=== PATIENT | female | born 2005 | race Caucasian/White ===

== ENCOUNTER 2025-07-05 11:01 | Outpatient (AMB) | payer MEDICAID, SELFPAY ==
[2025-07-05 11:13] VITALS: BP 116/74; PULSE 102; RESP 16; TEMP 36.2; O2SAT 96; BMI 24.7
--- NOTE | 2025-07-05 11:13 | OBCLNT_ITS ---
Vital Signs 07/05/25 11:13 Height 1.49 m Height Method Stated Weight 54.998 kg Weight Measurement Method Standing Scale BMI 24.7 BP 116/74 Blood Pressure Source Automatic Cuff Blood Pressure Location Left Upper Arm Position Sitting Respiration 16 Pulse 102 H Pulse Source Monitor Temp 97.2 F Temp Source Oral Pulse Oximetry (%) 96 Oxygen Delivery Method Room Air Allergies/Home Meds Allergies & Medications Allergies No Known Allergies Allergy (Verified 07/05/25 11:14) Medication Reconciliation No Known Home Medications 07/05/25 [History Confirmed 07/05/25] Intake Visit Data Collection New Patient or Established: New Patient (never been to [facility]) Reason for Visit:: OB TRANSFER 32 WEEKS Seen by Clinical Staff ONLY (RN/MA): No Carpenter/Labor Required: No Do You Feel Safe at Home: Yes Authorities Contacted: N/A PCP or OBGYN visit in last 3 months: Yes Hx Now: Yes Are you currently on any form of Control: No Last menstrual period: 11/23/24 Pain Present Currently: No Pain Scale Used: Farfan-Guerrero/Numerical Pain scale:: 0 Smoking Status Smoking Status: Never smoker Questionnaires Covid-19 Vaccine Questionnaire Has patient been vacinated for Covid-19 Have you been vacinated for Covid-19: No PHQ-9 PHQ-2 Over the last 2 weeks, how often have you been bothered by any of the following problems? 1. Little interest or pleasure in doing things: not at all 2. Feeling down, depressed, or hopeless: not at all Total score: 0 PHQ-9 3. Trouble falling or staying asleep, or sleeping too much: Not at all 4. Feeling tired or having little energy: Not at all 5. Poor appetite or overeating: Not at all 6. Feeling bad about yourself - or that you are a failure or have let yourself or your family down: Not at all 7. Trouble concentrating on things, such as reading the newspaper or watching television: Not at all 8. Moving or speaking so slowly that other people could have noticed? - Or the opposite - being so fidgety or restless that you have been moving around a lot more than usual: not at all 9. Thoughts that you would be better off or of hurting yourself in some way: Not at all Total score: 0 If you checked off any problems, how difficult have these problems made it for you to do your work, take care of things at home, or get along with other p eople?: not difficult at all Source: Developed by Drs. Juan Lion, Joyce Black, Jeremy Heaton and colleagues, with an educational mario from [employer]. Depression screen completed yes Social History Living Situation History Marital Status: Single Lives With: Family Housing: Apartment Tobacco History Smoking Status: Never smoker Second Hand Smoke Exposure: No Alcohol History Alcohol Intake: Never Domestic Abuse History Do You Feel Safe at Home: Yes History of Present Illness HPI Narrative 19-year-old 1 para 0 for OBI. Patient is a transfer from Dr. Newsome's office with records. Reports good movement. Denies leaking, denies bleeding, denies contractions. Last period November 18, 2024. Estimated due date August 25, 2025. Patient had an ultrasound at [facility] June 12. Patient was 29 weeks 3 and this confirmed dates. And baby was measuring 36 percentile. Patient denies any existence of chronic medical illness. Denies social habits. Denies surgery. Patient is O+, antibody screen negative, RPR nonreactive, rubella immune, hepatitis B negative, hep C negative, HIV negative, GC and Chlamydia were negative. Patient had an elevated 1 hour but 3-hour was normal. NIPT and AFP were negative. The screen for spinal muscular atrophy was negative. The patient screened positive for cystic fibrosis. Patient is currently being followed at [facility] for genetics OB Initial Visit OB Flowsheet OB Flowsheet Initial Weight: Not Recorded Date -?-?-?-?-?-?-?-?-?-?-?-?- EGA Weight BP Alb Glu CTX Pres Fundal ht FHR Mov Dilation Station Effacement Hx Notes Visit Note 07/05/25 -?-?-?-?-?-?-?-?-?-?-?-?- 32w 5d 54.998 kg 116/74 absent cephalic 32 145 active Denies leaking. Denies bleeding. Denies contractions. Reports good movement. Denies labor contractions. 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 Partner reports that he has had saliva test for cystic fibrosis screen and it is pending. They also have a follow-up with maternal- medicine and genetics July 19 Keep appointment with genetics and maternal- medicine for July 19. Discussed labor precautions. Advised kick count twice a day. Continue prenatals. Increase fluids. Return in 2 weeks OB check Menstrual History Menstrual reliability: definite Flow: normal Menstrual regularity: regular Monthly: Yes Age at menarche: 12 On control pills at conception: No OB History : 1 Para: 0 Hx # Pregnancies: 0 Hx Total # of Abortions (Spontaneous & Elective): 0 # of Living Children: 0 Infection History & Risk Evaluation History of STDs: none HIV risk evaluation: low risk Hepatitis B risk evaluation: low risk Patient or partner has history of Genital Herpes: No Varicella/chicken pox status: immunized Genetic Screening & History Genetic Screening/Teratology Counseling - Includes patient, baby's father, or anyone in either family with: 1. Patient's age 35 years or older as of estimated date of delivery: No 2. Thalassemia (Luxembourgish, Uzbek, Mediterranean, or Background); MCV less than 80: No 3. Neural Tube Defect (Meningomyelocele, Spina Bifida, or Anencephaly): No 4. Congenital Heart Defect: No 5. Down Syndrome: No 6. Darnell-Sachs (Ashkenazi Church, Cajun, Wolof [place]): No 7. Skye Disease (Ashkenazi Church): No 8. Familial Dysautonomia (Ashkenazi Church): No 9. Sickle Cell Disease or Trait (): No 10. Hemophilia or other blood disorders: No 11. Muscular Dystrophy: No 12. Cystic Fibrosis: No 13. Bradford's Chorea: No 14. Mental Retardation/Autism: No 15. Other inherited genetic or chromosomal disorder: No 16. Maternal Metabolic Disorder (EG,TYPE 1 Diabetes, PKU): No 17. Patient or baby's father had a child with defects not listed above: No 18. Recurrent loss or a stillbirth: No 19. Medications (including supplements, vitamins, herbs or otc drugs)/illicit/recreational drugs/alcohol since last menstrual period: No 20. Any other: No Infection History 1. Live with someone with TB or exposed to TB: No 2. Rash or viral illness since last menstrual period: No 3. Hepatitis B,C: No Other (see comments) Source: [employer] Review of Systems Review of Systems Systems Reviewed: All systems reviewed, normal except as documented Exam General Limitations: no limitations General Appearance: alert, in no apparent distress, comfortable, cooperative, healthy appearing, well developed and well groomed Head Head exam: atraumatic, normocephalic and normal inspection Neck Neck exam: Present normal inspection, full ROM and trachea midline Chest Chest inspection: Present normal inspection and symmetric chest wall rise Resp Respiratory exam: Present normal lung sounds bilaterally Card Cardiovascular exam: Present regular rate, normal rhythm and normal heart sounds Abdominal Abdominal exam: Present soft and normal bowel sounds Psych Psychiatric exam: Present normal affect and normal mood Office Procedures OB Clinic LOC & Office Proc's Nursing/Assessment Patient Status: Initial/New Patient OB Clinic Nursing Assessment: Medication Reconciliation, Update PMH in EMR and Vital Signs OB Clinic Coordination of Care: Education Complex Pt/Fam, Consent,records obtained, informed consent, Lab and Imaging orders, Ref for ancillary service and Staff clarify orders Special Needs: Heart tones New Patient Charge New Patient Point Assignment: [id number] New Patient Point Charge: SPRAYING MACHINE OPERATOR Level 4 ([id number]) Assessment & Plan Diagnosis / Problem List (1) Encounter for supervision of high risk in third trimester, antepartum: Status: Acute Plan Keep follow-up appointment with Lucy July 19. Discussed labor precautions. Kick counts twice a day. Continue prenatals. Increase fluids. Return in 2 weeks OB check Additional Plan Follow Up: 2 Weeks (0bc)
== END 2025-07-05 11:48 | disposition home or self-care (01) ==
LOC: HODSOBC 11:01
PROVIDERS: Supervising Provider Advanced Practice Midwife; Visit Provider Advanced Practice Midwife
DX: O09.893 Supervision of other high risk pregnancies, third trimester (principal); Z14.1 Cystic fibrosis carrier; Z3A.32 32 weeks gestation of pregnancy
CPT/HCPCS: 99204; G0463

== ENCOUNTER 2025-07-24 15:04 | Outpatient (AMB) | payer MEDICAID, SELFPAY ==
--- NOTE | 2025-07-24 15:08 | OBCLNT_ITS ---
Vital Signs 07/24/25 15:29 Height 1.49 m Height Method Stated Weight 56.245 kg Weight Measurement Method Standing Scale BMI 25.3 BP 112/76 Blood Pressure Source Automatic Cuff Blood Pressure Location Left Upper Arm Position Sitting Respiration 20 Pulse 101 H Pulse Source Monitor Temp 98.4 F Temp Source Oral Pulse Oximetry (%) 98 Oxygen Delivery Method Room Air Allergies/Home Meds Allergies & Medications Allergies No Known Allergies Allergy (Verified 07/24/25 15:29) Medication Reconciliation fluconazole 150 mg tablet 150 mg PO QDAY 3 days #3 tabs 07/24/25 [Rx] Intake Visit Data Collection New Patient or Established: Established Patient (seen at [facility] within 3 years) Reason for Visit:: CARE Seen by Clinical Staff ONLY (RN/MA): No Mail Order Biller Required: No Do You Feel Safe at Home: Yes Authorities Contacted: N/A PCP or OBGYN visit in last 3 months: Yes Hx Now: Yes Are you currently on any form of Control: No Pain Present Currently: No Pain Scale Used: Farfan-Guerrero/Numerical Pain scale:: 0 Smoking Status Smoking Status: Never smoker Questionnaires Covid-19 Vaccine Questionnaire Has patient been vacinated for Covid-19 Have you been vacinated for Covid-19: Yes PHQ-9 PHQ-2 Over the last 2 weeks, how often have you been bothered by any of the following problems? 1. Little interest or pleasure in doing things: not at all 2. Feeling down, depressed, or hopeless: not at all Total score: 0 PHQ-9 3. Trouble falling or staying asleep, or sleeping too much: Not at all 4. Feeling tired or having little energy: Not at all 5. Poor appetite or overeating: Not at all 6. Feeling bad about yourself - or that you are a failure or have let yourself or your family down: Not at all 7. Trouble concentrating on things, such as reading the newspaper or watching television: Not at all 8. Moving or speaking so slowly that other people could have noticed? - Or the opposite - being so fidgety or restless that you have been moving around a lot more than usual: not at all 9. Thoughts that you would be better off or of hurting yourself in some way: Not at all Total score: 0 Source: Developed by Drs. Juan Lion, Joyce Black, Jeremy Heaton and colleagues, with an educational mario from [employer] Depression screen completed yes Social History Living Situation History Lives With: Family Housing: Apartment Tobacco History Smoking Status: Never smoker Second Hand Smoke Exposure: No Alcohol History Alcohol Intake: Never Domestic Abuse History Do You Feel Safe at Home: Yes Care OB Visit Log OB Flowsheet Initial Weight: Not Recorded Date -?-?-?-?-?-?-?-?-?-?-?-?- EGA Weight BP Alb Glu CTX Pres Fundal ht FHR Mov Dilation Station Effacement Hx Notes Visit Note 07/05/25 -?-?-?-?-?-?-?-?-?-?-?-?- 32w 5d 54.998 kg 116/74 absent cephalic 32 145 active Denies leaking. Denies bleeding. Denies contractions. Reports good movement. Denies labor contractions. 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 Partner reports that he has had saliva test for cystic fibrosis screen and it is pending. They also have a follow-up with maternal- medicine and genetics July 19 Keep appointment with genetics and maternal- medicine for July 19. Discussed labor precautions. Advised kick count twice a day. Continue prenatals. Increase fluids. Return in 2 weeks OB check 07/24/25 -?-?-?-?-?-?-?-?-?-?-?-?- 35w 3d 56.245 kg 112/76 absent cephalic 35 150 active Reports good movement. Denies leaking, denies bleeding, no complaints of contractions. Patient's labia were both swollen. White curdy discharge noted. GBS today Diflucan 150 p.o. daily x 3 sent to [facility]. GBS today. Discussed labor precautions and kick count. Discussed ER precautions. And return in a week OB check KATHI Calculator Estimated Delivery Date Method Current WG Current Estimate 08/25/25 Manual 35w 3d final KATHI: 08/25/25. EFW: 52% Other Estimates 08/25/25 LMP (Certain) 35w 3d 08/25/25 Ultrasound #1 35w 3d 08/25/25 Ultrasound #2 35w 3d Notes Visit Date: 07/05/25 Last Updated by: Faith Nice CNM 19 yo . LMP:11/18/24. EDC: 08/25/25. MG+FM sono 06/12/25L 29w3. EDC: 08/25. EFW: 36%. O+,abs-, rpr;;nr, rub imm, hbsag-, HIV-, HC-, GC/CT-. UT-, 1 hr gtt: 144. 3hr gtt; WNL, NIPT-/AFP-. SMA-. CF+ genetic pending Office Procedures OB Clinic LOC & Office Proc's Nursing/Assessment Patient Status: Established Patient OB Clinic Nursing Assessment: Medication Reconciliation, Update PMH in EMR and Vital Signs OB Clinic Coordination of Care: Complex Care and Chronic Disease 1-5, Consent,records obtained, informed consent, Education Simp Pt/Fam, 1 Ins Authorization, Lab and Imaging orders, Results/Orders obtained and Staff clarify orders Special Needs: Heart tones Miscellaneous Interventions: Culture Specimen Collection Established Patient Charge Established Patient Point Assignment: 165 Established Patient Point Charge: EP Level 5 (160-above) Assessment & Plan Diagnosis / Problem List (1) Encounter for supervision of high risk in third trimester, antepartum: Status: Acute Plan GBS today. Discussed labor precautions and kick count. Discussed ER precautions as well. Diflucan 150 p.o. daily x 3 for yeast infection. Return in a week OB Additional Plan Follow Up: 1 Week (obc)
[2025-07-24 15:29] VITALS: BP 112/76; PULSE 101; RESP 20; TEMP 36.9; O2SAT 98; BMI 25.3
== END 2025-07-24 16:09 | disposition home or self-care (01) ==
LOC: HODSOBC 15:04
PROVIDERS: Supervising Provider Advanced Practice Midwife; Visit Provider Advanced Practice Midwife
DX: O09.893 Supervision of other high risk pregnancies, third trimester (principal); O98.813 Other maternal infectious and parasitic diseases complicating pregnancy, third trimester; B37.9 Candidiasis, unspecified; Z3A.35 35 weeks gestation of pregnancy
CPT/HCPCS: 99215; G0463

== ENCOUNTER 2025-07-31 14:57 | Outpatient (AMB) | payer MEDICAID, SELFPAY ==
[2025-07-31 15:12] VITALS: BP 110/75; PULSE 91; RESP 18; TEMP 36.8; O2SAT 96; BMI 25.7
--- NOTE | 2025-07-31 15:12 | OBCLNT_ITS ---
Vital Signs 07/31/25 15:12 Height 1.49 m Height Method Stated Weight 57.266 kg Weight Measurement Method Standing Scale BMI 25.7 BP 110/75 Blood Pressure Source Automatic Cuff Blood Pressure Location Left Upper Arm Position Sitting Respiration 18 Pulse 91 Pulse Source Monitor Temp 98.2 F Temp Source Oral Pulse Oximetry (%) 96 Oxygen Delivery Method Room Air Allergies/Home Meds Allergies & Medications Allergies No Known Allergies Allergy (Verified 07/31/25 15:13) Medication Reconciliation No Known Home Medications 07/31/25 [History Confirmed 07/31/25] Intake Visit Data Collection New Patient or Established: Established Patient (seen at [facility] within 3 years) Reason for Visit:: CARE Seen by Clinical Staff ONLY (RN/MA): No Process Safety Manager Required: No Do You Feel Safe at Home: Yes Authorities Contacted: N/A PCP or OBGYN visit in last 3 months: Yes Hx Now: Yes Are you currently on any form of Control: No Pain Present Currently: No Pain Scale Used: Farfan-Guerrero/Numerical Pain scale:: 0 Smoking Status Smoking Status: Never smoker Questionnaires Covid-19 Vaccine Questionnaire Has patient been vacinated for Covid-19 Have you been vacinated for Covid-19: No PHQ-9 PHQ-2 Over the last 2 weeks, how often have you been bothered by any of the following problems? 1. Little interest or pleasure in doing things: not at all 2. Feeling down, depressed, or hopeless: not at all Total score: 0 PHQ-9 3. Trouble falling or staying asleep, or sleeping too much: Not at all 4. Feeling tired or having little energy: Not at all 5. Poor appetite or overeating: Not at all 6. Feeling bad about yourself - or that you are a failure or have let yourself or your family down: Not at all 7. Trouble concentrating on things, such as reading the newspaper or watching television: Not at all 8. Moving or speaking so slowly that other people could have noticed? - Or the opposite - being so fidgety or restless that you have been moving around a lot more than usual: not at all 9. Thoughts that you would be better off or of hurting yourself in some way: Not at all Total score: 0 Source: Developed by Joyce McginnisW. Wayne, Jeremy Heaton and colleagues, with an educational mario from [employer]. Depression screen completed yes Social History Living Situation History Lives With: Family Housing: Apartment Tobacco History Smoking Status: Never smoker Second Hand Smoke Exposure: No Alcohol History Alcohol Intake: Never Domestic Abuse History Do You Feel Safe at Home: Yes Care OB Visit Log OB Flowsheet Initial Weight: Not Recorded Date -?-?-?-?-?-?-?-?-?-?-?-?- EGA Weight BP Alb Glu CTX Pres Fundal ht FHR Mov Dilation Station Effacement Hx Notes Visit Note 07/05/25 -?-?-?-?-?-?-?-?-?-?-?-?- 32w 5d 54.998 kg 116/74 absent cephalic 32 145 active Denies leaking. Denies bleeding. Denies contractions. Reports good movement. Denies labor contractions. 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 Partner reports that he has had saliva test for cystic fibrosis screen and it is pending. They also have a follow-up with maternal- medicine and genetics July 19 Keep appointment with genetics and maternal- medicine for July 19. Discussed labor precautions. Advised kick count twice a day. Continue prenatals. Increase fluids. Return in 2 weeks OB check 07/24/25 -?-?-?-?-?-?-?-?-?-?-?-?- 35w 3d 56.245 kg 112/76 absent cephalic 35 150 active Reports good movement. Denies leaking, denies bleeding, no complaints of contractions. Patient's labia were both swollen. White curdy discharge noted. GBS today Diflucan 150 p.o. daily x 3 sent to [facility]. GBS today. Discussed labor precautions and kick count. Discussed ER precautions. And return in a week OB check 07/31/25 -?-?-?-?-?-?-?-?-?-?-?-?- 36w 3d 57.266 kg 110/75 absent cephalic 36 145 active Reports good movement. Fetus is active. Denies contractions denies bleeding, denies leaking. Patient does complain of some pelvic pressure. Vaginitis symptoms improved. Repeat GBS. Discussed labor precautions and kick count with patient. Increase fluids. Return in a week OB check KATHI Calculator Estimated Delivery Date Method Current WG Current Estimate 08/25/25 Manual 36w 3d final KATHI: 08/25/25. EFW: 52% Other Estimates 08/25/25 LMP (Certain) 36w 3d 08/25/25 Ultrasound #1 36w 3d 08/25/25 Ultrasound #2 36w 3d Notes Visit Date: 07/05/25 Last Updated by: Faith Nice CNM 19 yo . LMP:11/18/24. EDC: 08/25/25. MG+FM sono 06/12/25L 29w3. EDC: 08/25. EFW: 36%. O+,abs-, rpr;;nr, rub imm, hbsag-, HIV-, HC-, GC/CT-. UT-, 1 hr gtt: 144. 3hr gtt; WNL, NIPT-/AFP-. SMA-. CF+ genetic pending Office Procedures OB Clinic LOC & Office Proc's Nursing/Assessment Patient Status: Established Patient OB Clinic Nursing Assessment: Medication Reconciliation, Update PMH in EMR and Vital Signs OB Clinic Coordination of Care: Complex Care and Chronic Disease 1-5, Consent,records obtained, informed consent, Education Simp Pt/Fam, Lab and Imaging orders, Results/Orders obtained and Staff clarify orders Special Needs: Heart tones Established Patient Charge Established Patient Point Assignment: 135 Established Patient Point Charge: EP Level 4 (120-155) Assessment & Plan Diagnosis / Problem List (1) Encounter for supervision of high risk in third trimester, ant epartum: Status: Acute Plan gbs TODAY. DISCUSS LABOR PRECAUTION, [facility] BID. discuss danger s/s and ER precaution. rtc 1 week Additional Plan Follow Up: 1 Week (obc)
== END 2025-07-31 15:42 | disposition home or self-care (01) ==
LOC: HODSOBC 14:57
PROVIDERS: Supervising Provider Advanced Practice Midwife; Visit Provider Advanced Practice Midwife
DX: O09.93 Supervision of high risk pregnancy, unspecified, third trimester (principal); Z3A.36 36 weeks gestation of pregnancy; Z36.85 Encounter for antenatal screening for Streptococcus B
CPT/HCPCS: 99214; G0463

== ENCOUNTER 2025-08-09 13:38 | Outpatient (AMB) | payer MEDICAID, SELFPAY ==
[2025-08-09 13:49] VITALS: BP 112/74; PULSE 80; RESP 16; TEMP 36.8; O2SAT 98; BMI 26.0
--- NOTE | 2025-08-09 13:49 | OBCLNT_ITS ---
Vital Signs 08/09/25 13:49 Height 1.49 m Height Method Stated Weight 57.776 kg Weight Measurement Method Standing Scale BMI 26.0 BP 112/74 Blood Pressure Source Automatic Cuff Blood Pressure Location Left Upper Arm Position Sitting Respiration 16 Pulse 80 Pulse Source Monitor Temp 98.2 F Temp Source Oral Pulse Oximetry (%) 98 Oxygen Delivery Method Room Air Allergies/Home Meds Allergies & Medications Allergies No Known Allergies Allergy (Verified 08/09/25 13:49) Medication Reconciliation No Known Home Medications 07/31/25 [History Confirmed 08/09/25] Intake Visit Data Collection New Patient or Established: Established Patient (seen at [facility] within 3 years) Reason for Visit:: OBC Seen by Clinical Staff ONLY (RN/MA): No Hide Paster Required: No Do You Feel Safe at Home: Yes Authorities Contacted: N/A PCP or OBGYN visit in last 3 months: Yes Date of Last PCP or OBGYN visit: 07/31/25 Hx Now: Yes Are you currently on any form of Control: No Pain Present Currently: No Pain Scale Used: Farfan-Guerrero/Numerical Pain scale:: 0 Smoking Status Smoking Status: Never smoker Questionnaires Covid-19 Vaccine Questionnaire Has patient been vacinated for Covid-19 Have you been vacinated for Covid-19: Yes PHQ-9 PHQ-2 Over the last 2 weeks, how often have you been bothered by any of the following problems? 1. Little interest or pleasure in doing things: not at all 2. Feeling down, depressed, or hopeless: not at all Total score: 0 PHQ-9 3. Trouble falling or staying asleep, or sleeping too much: Not at all 4. Feeling tired or having little energy: Not at all 5. Poor appetite or overeating: Not at all 6. Feeling bad about yourself - or that you are a failure or have let yourself or your family down: Not at all 7. Trouble concentrating on things, such as reading the newspaper or watching television: Not at all 8. Moving or speaking so slowly that other people could have noticed? - Or the opposite - being so fidgety or restless that you have been moving around a lot more than usual: not at all 9. Thoughts that you would be better off or of hurting yourself in some way: Not at all Total score: 0 If you checked off any problems, how difficult have these problems made it for you to do your work, take care of things at home, or get along with other people?: not difficult at all Source: Developed by Drs. Juan Lion, Joyce Black, Jeremy Heaton and colleagues, with an educational mario from [employer]. Depression screen completed yes Social History Living Situation History Marital Status: Single Lives With: Family Housing: Apartment Tobacco History Smoking Status: Never smoker Second Hand Smoke Exposure: No Alcohol History Alcohol Intake: Never Domestic Abuse History Do You Feel Safe at Home: Yes Care OB Visit Log OB Flowsheet Initial Weight: Not Recorded Date -?-?-?-?-?-?-?-?-?-?-?-?- EGA Weight BP Alb Glu CTX Pres Fundal ht FHR Mov Dilation Station Effacement Hx Notes Visit Note 07/05/25 -?-?-?-?-?-?-?-?-?-?-?-?- 32w 5d 54.998 kg 116/74 absent cephalic 32 145 active Denies leaking. Denies bleeding. Denies contractions. Reports good movement. Denies labor contractions. 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 Partner reports that he has had saliva test for cystic fibrosis screen and it is pending. They also have a follow-up with maternal- medicine and genetics July 19 Keep appointment with genetics and maternal- medicine for July 19. Discussed labor precautions. Advised kick count twice a day. Continue prenatals. Increase fluids. Return in 2 weeks OB check 07/24/25 -?-?-?-?-?-?-?-?-?-?-?-?- 35w 3d 56.245 kg 112/76 absent cephalic 35 150 active Reports good movement. Denies leaking, denies bleeding, no complaints of contractions. Patient's labia were both swollen. White curdy discharge noted. GBS today Diflucan 150 p.o. daily x 3 sent to [facility]. GBS today. Discussed labor precautions and kick count. Discussed ER precautions. And return in a week OB check 07/31/25 -?-?-?-?-?-?-?-?-?-?-?-?- 36w 3d 57.266 kg 110/75 absent cephalic 36 145 active Reports good movement. Fetus is active. Denies contractions denies bleeding, denies leaking. Patient does complain of some pelvic pressure. Vaginitis symptoms improved. Repeat GBS. Discussed labor precautions and kick count with patient. Increase fluids. Return in a week OB check 08/09/25 -?-?-?-?-?-?-?-?-?-?-?-?- 37w 5d 57.776 kg 112/74 absent cephalic 37 145 active Reports good movement. Denies leaking or bleeding. Increased pressure. Occasional contractions Discussed labor precautions with patient. Discussed kick count twice a day. Increase fluids. Continue prenatals. Discussed danger signs symptoms and ER precautions. Return in a week OB check KATHI Calculator Estimated Delivery Date Method Current WG Current Estimate 08/25/25 Manual 37w 5d final KATHI: 08/25/25. EFW: 52% Other Estimates 08/25/25 LMP (Certain) 37w 5d 08/25/25 Ultrasound #1 37w 5d 08/25/25 Ultrasound #2 37w 5d Notes Visit Date: 08/09/25 Last Updated by: Faith Nice CNM 08/08: GBS- Visit Date: 07/05/25 Last Updated by: Faith Nice CNM 19 yo . LMP:11/18/24. EDC: 08/25/25. MG+FM sono 06/12/25L 29w3. EDC: 08/25. EFW: 36%. O+,abs-, rpr;;nr, rub imm, hbsag-, HIV-, HC-, GC/CT-. UT-, 1 hr gtt: 144. 3hr gtt; WNL, NIPT-/AFP-. SMA-. CF+ genetic pending Office Procedures OBC Clinic LOC & Office Proc's Nursing/Assessment Patient Status: Established Patient OB Clinic Nursing Assessment: Medication Reconciliation, Update PMH in EMR and Vital Signs OB Clinic Coordination of Care: Education Complex Pt/Fam, Consent,records obtained, informed consent, Lab and Imaging orders, Results/Orders obtained and Staff clarify orders Special Needs: Heart tones Established Patient Charge Established Patient Point Assignment: 115 Established Patient Point Charge: EP Level 3 (80-115) Assessment & Plan Diagnosis / Problem List (1) Encounter for supervision of high risk in third trimester, antepartum: Status: Acute Plan Kick count twice a day. Discussed labor precautions and signs symptoms of labor. Discussed ER precautions and danger signs symptoms. Continue prenatals. Return week OB check Additional Plan Follow Up: 1 Week (obc)
== END 2025-08-09 14:03 | disposition home or self-care (01) ==
LOC: HODSOBC 13:38
PROVIDERS: Supervising Provider Advanced Practice Midwife; Visit Provider Advanced Practice Midwife
DX: O09.93 Supervision of high risk pregnancy, unspecified, third trimester (principal); Z3A.37 37 weeks gestation of pregnancy
CPT/HCPCS: 99213; G0463

== ENCOUNTER 2025-08-21 11:21 | Outpatient (AMB) | payer MEDICAID, SELFPAY ==
[2025-08-21 11:36] VITALS: BP 114/80; PULSE 89; RESP 17; TEMP 36.4; O2SAT 98; BMI 26.5
--- NOTE | 2025-08-21 11:36 | AMB.OBVISIT ---
Vital Signs 08/21/25 11:36 Height 1.49 m Height Method Stated Weight 58.967 kg Weight Measurement Method Standing Scale BMI 26.5 BP 114/80 Blood Pressure Source Automatic Cuff Blood Pressure Location Right Upper Arm Position Sitting Respiration 17 Pulse 89 Pulse Source Monitor Temp 97.6 F Temp Source Temporal Artery Scan Pulse Oximetry (%) 98 Oxygen Delivery Method Room Air Allergies/Home Meds Allergies & Medications Allergies No Known Allergies Allergy (Verified 08/21/25 11:37) Medication Reconciliation No Known Home Medications 07/31/25 [History Confirmed 08/21/25] Intake Visit Data Collection New Patient or Established: Established Patient (seen at [facility] within 3 years) Reason for Visit:: OBC Seen by Clinical Staff ONLY (RN/MA): No Second Chef Required: No Do You Feel Safe at Home: Yes Authorities Contacted: N/A PCP or OBGYN visit in last 3 months: Yes Date of Last PCP or OBGYN visit: 08/09/25 Hx Now: Yes Are you currently on any form of Control: No Pain Present Currently: No Pain Scale Used: Farfan-Guerrero/Numerical Pain scale:: 0 Smoking Status Smoking Status: Never smoker Questionnaires Covid-19 Vaccine Questionnaire Has patient been vacinated for Covid-19 Have you been vacinated for Covid-19: No PHQ-9 PHQ-2 Over the last 2 weeks, how often have you been bothered by any of the following problems? 1. Little interest or pleasure in doing things: not at all 2. Feeling down, depressed, or hopeless: not at all Total score: 0 PHQ-9 3. Trouble falling or staying asleep, or sleeping too much: Not at all 4. Feeling tired or having little energy: Not at all 5. Poor appetite or overeating: Not at all 6. Feeling bad about yourself - or that you are a failure or have let yourself or your family down: Not at all 7. Trouble concentrating on things, such as reading the newspaper or watching television: Not at all 8. Moving or speaking so slowly that other people could have noticed? - Or the opposite - being so fidgety or restless that you have been moving around a lot more than usual: not at all 9. Thoughts that you would be better off or of hurting yourself in some way: Not at all Total score: 0 If you checked off any problems, how difficult have these problems made it for you to do your work, take care of things at home, or get along with other people?: not difficult at all Source: Developed by Drs. Juan Lion, Joyce Black, Jeremy Heaton and colleagues, with an educational mario from [employer]. Depression screen completed yes Social History Living Situation History Marital Status: Life Partner Lives With: Family Housing: Apartment Tobacco History Smoking Status: Never smoker Second Hand Smoke Exposure: No Alcohol History Alcohol Intake: Never Domestic Abuse History Do You Feel Safe at Home: Yes Care OB Visit Log OB Flowsheet Initial Weight: Not Recorded Date <del>?</del> EGA Weight BP Alb Glu CTX Pres Fundal ht FHR Mov Dilation Station Effacement Hx Notes Visit Note 07/05/25 <del>?</del> 32w 5d 54.998 kg 116/74 absent cephalic 32 145 active Denies leaking. Denies bleeding. Denies contractions. Reports good movement. Denies labor contractions. 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 Partner reports that he has had saliva test for cystic fibrosis screen and it is pending. They also have a follow-up with maternal- medicine and genetics July 19 Keep appointment with genetics and maternal- medicine for July 19. Discussed labor precautions. Advised kick count twice a day. Continue prenatals. Increase fluids. Return in 2 weeks OB check 07/24/25 <del>?</del> 35w 3d 56.245 kg 112/76 absent cephalic 35 150 active Reports good movement. Denies leaking, denies bleeding, no complaints of contractions. Patient's labia were both swollen. White curdy discharge noted. GBS today Diflucan 150 p.o. daily x 3 sent to [facility]. GBS today. Discussed labor precautions and kick count. Discussed ER precautions. And return in a week OB check 07/31/25 <del>?</del> 36w 3d 57.266 kg 110/75 absent cephalic 36 145 active Reports good movement. Fetus is active. Denies contractions denies bleeding, denies leaking. Patient does complain of some pelvic pressure. Vaginitis symptoms improved. Repeat GBS. Discussed labor precautions and kick count with patient. Increase fluids. Return in a week OB check 08/09/25 <del>?</del> 37w 5d 57.776 kg 112/74 absent cephalic 37 145 active Reports good movement. Denies leaking or bleeding. Increased pressure. Occasional contractions Discussed labor precautions with patient. Discussed kick count twice a day. Increase fluids. Continue prenatals. Discussed danger signs symptoms and ER precautions. Return in a week OB check 08/21/25 <del>?</del> 39w 3d 58.967 kg 114/80 absent cephalic 38 140 active 1 -1 80 Reports good movement. Denies leaking denies bleeding. Occasional contraction. Increased pressure Discussed labor precautions. Kick count twice a day. Increase fluids. Continue prenatals. Discussed danger signs symptoms ER precautions. Return in a week for OB check KATHI Calculator Estimated Delivery Date Method Current WG Current Estimate 08/25/25 LMP (Certain) 39w 3d Other Estimates 08/25/25 Ultrasound #1 39w 3d 08/25/25 Ultrasound #2 39w 3d 08/25/25 Manual 39w 3d final KATHI: 08/25/25. EFW: 52% Notes Visit Date: 08/09/25 Last Updated by: Faith Nice CNM 08/08: GBS- Visit Date: 07/05/25 Last Updated by: Faith Nice CNM 19 yo . LMP:11/18/24. EDC: 08/25/25. MG+FM sono 06/12/25L 29w3. EDC: 08/25. EFW: 36%. O+,abs-, rpr;;nr, rub imm, hbsag-, HIV-, HC-, GC/CT-. UT-, 1 hr gtt: 144. 3hr gtt; WNL, NIPT-/AFP-. SMA-. CF+ genetic pending Office Procedures OBC Clinic LOC & Office Proc's Nursing/Assessment Patient Status: Established Patient OB Clinic Nursing Assessment: Medication Reconciliation, Update PMH in EMR and Vital Signs OB Clinic Coordination of Care: Complex Care and Chronic Disease 1-5, Education Complex Pt/Fam, Consent,records obtained, informed consent and Staff clarify orders Special Needs: Heart tones Miscellaneous Interventions: Pelvic no cultures Established Patient Charge Established Patient Point Assignment: 130 Established Patient Point Charge: EP Level 4 (120-155) Assessment & Plan Diagnosis / Problem List (1) Encounter for supervision of high risk in third trimester, antepartum: Status: Acute Plan discuss labor precaution. fkc bid. comfort measure for pressure and back ache, rtc 1 week obc Additional Plan Follow Up: 1 Week (obc)
== END 2025-08-21 11:48 | disposition home or self-care (01) ==
LOC: HODSOBC 11:21
PROVIDERS: Supervising Provider Advanced Practice Midwife; Visit Provider Advanced Practice Midwife
DX: O09.93 Supervision of high risk pregnancy, unspecified, third trimester (principal); Z3A.39 39 weeks gestation of pregnancy
CPT/HCPCS: 99214; G0463

== ENCOUNTER 2025-08-26 10:13 | Observation (INO) | payer MEDICAID, SELFPAY ==
[2025-08-26] VITALS (31 sets, daily range): BP systolic 100–123; BP diastolic 57–87; PULSE 79–107; RESP 16–98; TEMP 36.8; O2SAT 96–99; BMI 27.8
--- NOTE | 2025-08-26 12:08 | XR_ITS ---
Examination: Biophysical profile, ultrasound Date and time of exam: 08/26/2025, 12:18 p.m. INDICATION: wellbeing Technique: Multiple transabdominal sonographic images of the pelvis abdomen obtained. Attention is directed to the breathing movement, gross body movement, amniotic fluid volume and tone. Findings: Total biophysical profile is 8 of 8. breathing movement is 2. Gross body movement is 2. tone is 2. Qualitative amniotic fluid volume is 2 heart rate: 135 bpm MATHIEU: 5.1 cm Impression: Biophysical profile is 8 of 8.
[2025-08-26] MEDS: RINGERS LACTATED 1000 ML 1,000 ML 999 ML IV (12:15)
[2025-08-26 12:25] LABS: Influenza A Ag Negative; Influenza B Ag Negative
[2025-08-26 12:46] LABS: COVID-19 Antigen (In-House) Negative (Negative)
== END 2025-08-26 13:28 | disposition home or self-care (01) ==
PROVIDERS: Admitting Provider Obstetrics & Gynecology; Visit Provider Obstetrics & Gynecology
DX: O26.893 Other specified pregnancy related conditions, third trimester (principal); Z3A.40 40 weeks gestation of pregnancy; R50.9 Fever, unspecified; R51.9 Headache, unspecified
CPT/HCPCS: 59025; 59899; 76819; 87502; 87811; J7120

== ENCOUNTER 2025-08-28 09:09 | Outpatient (CLI) | payer MEDICAID, SELFPAY ==
[2025-08-28] VITALS (8 sets, daily range): BP systolic 117; BP diastolic 75–85; PULSE 83–91; RESP 16–98; TEMP 36.6; O2SAT 97–98; BMI 27.0
--- NOTE | 2025-08-28 10:00 | XR_ITS ---
Examination: Biophysical profile, ultrasound Date and time of exam: August 28, 2025, 1002 hours INDICATIONS: Post dates Technique: Multiple transabdominal sonographic images of the pelvis abdomen obtained. Attention is directed to the breathing movement, gross body movement, amniotic fluid volume and tone. Findings: Amniotic fluid index 7.8 cm Total biophysical profile is 8 of 8. breathing movement is 2. Gross body movement is 2. tone is 2. Qualitative amniotic fluid volume is 2 Impression: Biophysical profile is 8 of 8.
== END 2025-08-28 11:10 | disposition home or self-care (01) ==
LOC: S4S1 09:13 → S4SX 09:14
PROVIDERS: Referring Provider Obstetrics & Gynecology; Visit Provider Obstetrics & Gynecology
DX: O48.0 Post-term pregnancy (principal); Z3A.40 40 weeks gestation of pregnancy
CPT/HCPCS: 59025; 76819

== ENCOUNTER 2025-08-30 08:38 | Outpatient (AMB) | payer MEDICAID, SELFPAY ==
[2025-08-30 08:43] VITALS: BP 126/84; PULSE 97; RESP 18; TEMP 36.6; O2SAT 98; BMI 26.9
--- NOTE | 2025-08-30 08:43 | OBCLNT_ITS ---
Vital Signs 08/30/25 08:43 Height 1.5 m Height Method Stated Weight 60.328 kg Weight Measurement Method Standing Scale BMI 26.9 BP 126/84 Blood Pressure Source Automatic Cuff Blood Pressure Location Left Upper Arm Position Sitting Respiration 18 Pulse 97 Pulse Source Monitor Temp 98 F Temp Source Oral Pulse Oximetry (%) 98 Oxygen Delivery Method Room Air Allergies/Home Meds Allergies & Medications Allergies No Known Allergies Allergy (Verified 08/30/25 08:43) Medication Reconciliation vitamins no.102-iron 90 mg-folate 1 mg-dha 200 mg capsule 1 cap PO QDAY 08/28/25 [History Confirmed 08/30/25] Intake Visit Data Collection New Patient or Established: Established Patient (seen at [facility] within 3 years) Reason for Visit:: CARE Seen by Clinical Staff ONLY (RN/MA): No Airplane Pilot Chief Required: No Do You Feel Safe at Home: Yes Authorities Contacted: N/A PCP or OBGYN visit in last 3 months: Yes Hx Now: Yes Are you currently on any form of Control: No Pain Present Currently: No Pain Scale Used: Farfan-Guerrero/Numerical Pain scale:: 0 Smoking Status Smoking Status: Never smoker Immunizations Flu Vaccine in the Last 12 Months: No Flu Vaccine Exclusion Criteria: No Exclusion Criteria Questionnaires Covid-19 Vaccine Questionnaire Has patient been vacinated for Covid-19 Have you been vacinated for Covid-19: No PHQ-9 PHQ-2 Over the last 2 weeks, how often have you been bothered by any of the following problems? 1. Little interest or pleasure in doing things: not at all 2. Feeling down, depressed, or hopeless: not at all Total score: 0 PHQ-9 3. Trouble falling or staying asleep, or sleeping too much: Not at all 4. Feeling tired or having little energy: Not at all 5. Poor appetite or overeating: Not at all 6. Feeling bad about yourself - or that you are a failure or have let yourself or your family down: Not at all 7. Trouble concentrating on things, such as reading the newspaper or watching television: Not at all 8. Moving or speaking so slowly that other people could have noticed? - Or the opposite - being so fidgety or restless that you have been moving around a lot more than usual: not at all 9. Thoughts that you would be better off or of hurting yourself in some way: Not at all Total score: 0 Source: Developed by Drs. Juan Lion, Joyce Black, Jeremy Heaton and colleagues, with an educational mario from [employer]. Depression screen completed yes Social History Living Situation History Lives With: Family Housing: Apartment Tobacco History Smoking Status: Never smoker Second Hand Smoke Exposure: No Alcohol History Alcohol Intake: Never Domestic Abuse History Do You Feel Safe at Home: Yes Care OB Visit Log OB Flowsheet Initial Weight: Not Recorded Date -?-?-?-?-?-?-?-?-?-?--?-?- EGA Weight BP Alb Glu CTX Pres Fundal ht FHR Mov Dilation Station Effacement Hx Notes Visit Note 07/05/25 -?-?-?-?-?-?-?-?-?-?-?-?- 32w 5d 54.998 kg 116/74 absent cephalic 32 145 active Denies leaking. Denies bleeding. Denies contractions. Reports good movement. Denies labor contractions. 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 Partner reports that he has had saliva test for cystic fibrosis screen and it is pending. They also have a follow-up with maternal- medicine and genetics July 19 Keep appointment with genetics and maternal- medicine for July 19. Discussed labor precautions. Advised kick count twice a day. Continue prenatals. Increase fluids. Return in 2 wee ks OB check 07/24/25 -?-?-?-?-?-?-?-?-?-?-?-?- 35w 3d 56.245 kg 112/76 absent cephalic 35 150 active Reports good movement. Denies leaking, denies bleeding, no complaints of contractions. Patient's labia were both swollen. White curdy discharge noted. GBS today Diflucan 150 p.o. daily x 3 sent to [facility]. GBS today. Discussed labor precautions and kick count. Discussed ER precautions. And return in a week OB check 07/31/25 -?-?-?-?-?-?-?-?-?-?-?-?- 36w 3d 57.266 kg 110/75 absent cephalic 36 145 active Reports good movement. Fetus is active. Denies contractions denies bleeding, denies leaking. Patient does complain of some pelvic pressure. Vaginitis symptoms improved. Repeat GBS. Discussed labor precautions and kick count with patient. Increase fluids. Return in a week OB check 08/09/25 -?-?-?-?-?-?-?-?-?-?-?-?- 37w 5d 57.776 kg 112/74 absent cephalic 37 145 active Reports good movement. Denies leaking or bleeding. Increased pressure. Occasional contractions Discussed labor precautions with patient. Discussed kick count twice a day. Increase fluids. Continue prenatals. Discussed danger signs symptoms and ER precautions. Return in a week OB check 08/21/25 -?-?-?-?-?-?-?-?-?-?-?-?- 39w 3d 58.967 kg 114/80 absent cephalic 38 140 active 1 -1 80 Reports good movement. Denies leaking denies bleeding. Occasional contraction. Increased pressure Discussed lab or precautions. Kick count twice a day. Increase fluids. Continue prenatals. Discussed danger signs symptoms ER precautions. Return in a week for OB check 08/30/25 -?-?-?-?-?-?-?-?-?-?-?-?- 40w 5d 60.328 kg 126/84 occasional cephalic 39 147 active 1.5 -1 90 Fetus active per patient. Complains of leaking x 24 hours. Denies bleeding. And reports contractions are increased and increased pressure Patient sent to labor and delivery for rule out labor and rule out rupture membranes. Discussed labor precautions and kick count. Discussed danger signs symptoms and ER precautions. Return in 2 days if undelivered. And if patient is not They will schedule her for induction. KATHI Calculator Estimated Delivery Date Method Current WG Current Estimate 08/25/25 LMP (Certain) 40w 5d Other Estimates 08/25/25 Ultrasound #1 40w 5d 08/25/25 Ultrasound #2 40w 5d 08/25/25 Manual 40w 5d final KATHI: 08/09 06/02. EFW: 52% Notes Visit Date: 08/09/25 Last Updated by: Faith Nice CNM 08/08: GBS- Visit Date: 07/05/25 Last Updated by: Faith Nice CNM 19 yo . LMP:11/18/24. EDC: 08/25/25. MG+FM sono 06/12/25L 29w3. EDC: 08/25. EFW: 36%. O+,abs-, rpr;;nr, rub imm, hbsag-, HIV-, HC-, GC/CT-. UT-, 1 hr gtt: 144. 3hr gtt; WNL, NIPT-/AFP-. SMA-. CF+ genetic pending Office Procedures OBC Clinic LOC & Office Proc's Nursing/Assessment Patient Status: Established Patient OB Clinic Nursing Assessment: Medication Reconciliation, Update PMH in EMR and Vital Signs OB Clinic Coordination of Care: Complex Care and Chronic Disease 1-5, Consent,records obtained, informed consent, Education Simp Pt/Fam, 1 Ins Authorization, Lab and Imaging orders, Results/Orders obtained and Staff clarify orders Special Needs: Heart tones Miscellaneous Interventions: Pelvic no cultures Established Patient Charge Established Patient Point Assignment: 160 Established Patient Point Charge: EP Level 5 (160-above) Assessment & Plan Diagnosis / Problem List (1) Encounter for supervision of high risk in third trimester, antepartum: Status: Acute Plan Discussed labor precautions and kick count. Patient sent to labor and delivery for rule out rupture membranes and labor eval. If patient's not ruptured we will get her scheduled for induction. Additional Plan Follow Up: 1 Week (obc)
== END 2025-08-30 08:59 | disposition home or self-care (01) ==
LOC: HODSOBC 08:38
PROVIDERS: Supervising Provider Advanced Practice Midwife; Visit Provider Advanced Practice Midwife
DX: O09.893 Supervision of other high risk pregnancies, third trimester (principal); O48.0 Post-term pregnancy; Z3A.40 40 weeks gestation of pregnancy
CPT/HCPCS: 99215; G0463

== ENCOUNTER 2025-08-30 09:17 | Inpatient (IN) | payer MEDICAID, SELFPAY ==
[2025-08-30] VITALS (31 sets, daily range): BP systolic 98–157; BP diastolic 58–86; PULSE 58–96; RESP 16–97; TEMP 36.9–37.3; BMI 26.7
[2025-08-30 09:47] LABS: ROM Kit Exp Date# 4/11/28; Swb Mxed in Solvent 1 min? Yes
[2025-08-30 09:48] LABS: ROM Swab Mixed By: ASTOA1; Rupture of Fetal Membranes Positive (Negative)
[2025-08-30] MEDS: RINGERS LACTATED 1000 ML 1,000 ML 100 ML IV ×2 (10:23→22:07)
[2025-08-30 10:40] LABS: Basophils # (Auto) 0.0 Thou/mm3 (0.0-0.2); Basophils % (Auto) 0 % (0-2.5); Eosinophils # (Auto) 0.1 Thou/mm3 (0.0-0.5); Eosinophils % (Auto) 1 % (0-10); Hematocrit 37.3 % (36.0-46.0); Hemoglobin 12.7 g/dL (12.0-16.0); Immature Granulocytes Auto 0.09 Thou/mm3 (0.00-0.00); Lymphocytes # (Auto) 1.6 Thou/mm3 (1.0-4.8); Lymphocytes % (Auto) 18 % (10-50); Mean Corpuscular HGB Conc 34.0 g/dl (31.0-37.0); Mean Corpuscular Hemoglobin 30.9 pg (25.0-35.0); Mean Corpuscular Volume 91 fL (80-100); Monocytes # (Auto) 0.6 Thou/mm3 (0.0-0.8); Monocytes % (Auto) 7 % (0-12); Neutrophils # (Auto) 6.2 Thou/mm3 (1.8-7.7); Neutrophils % (Auto) 72 % (37-80); Nucleated Red Blood Cell # 0.00 Thou/mm3 (0.00-0.00); Nucleated Red Blood Cell % 0 /100 WBC (0); Platelet Count 232 Thou/mm3 (140-440); RDW Standard Deviation 44.1 fL (36.4-46.3); Red Blood Count 4.11 Miln/mm3 (4.00-5.20); White Blood Count 8.6 Thou/mm3 (3.6-11.0)
[2025-08-30 11:14] LABS: Syphilis Nonreactive (Nonreactive)
--- NOTE | 2025-08-30 11:26 | XR_ITS ---
Examination: Complete OB ultrasound greater than 14 weeks Date and time of exam: August 30, 2025, 1132 hours INDICATIONS: Leaking amniotic fluid beginning yesterday Findings: Viable intrauterine single fetus with single amniotic sac presentation cephalic spine maternal left Cardiac motion 125 bpm Placenta fundal grade 2 Umbilical cord insertion seen Amniotic fluid index 6.4 cm Ovaries obscured by bowel gas. Composite estimated gestational age based on BPD, head circumference, abdominal circumference, femur length is 37 weeks 0 days Estimated weight 3223 g. Survey of intracranial anatomy, spinal anatomy, abdominal anatomy, four-chamber heart performed with no abnormalities identified. Impression: Viable intrauterine gestation cephalic presentation.
[2025-08-30] MEDS: Ampicillin Inj 2,000 MG in SODIUM CHLORIDE 0.9% (POP) 100 ML 200 MG IV (14:05)
[2025-08-30] MEDS: OXYTOCIN in NS 30 units 30 UNIT/500 ML BAG IV (17:20)
[2025-08-30] MEDS: Ampicillin Inj 1,000 MG in SODIUM CHLORIDE 0.9% (Popper) 50 ML 100 MG IV ×2 (18:08→22:06)
--- NOTE | 2025-08-30 18:58 | PD.LDHP ---
Documentation for date of: 08/30/25 OB Labor/Induct. HPI History of Present Illness Chief complaint: leaking for 18 hour : 1 Para: 0 Term pregnancies: 0 pregnancies: 0 Living children: 0 History of Abortions: Spontaneous and Elective: 0 History of Vaginal deliveries: 0 History of sections: No History of : No Date of last menstrual period: 11/18/24 KATHI: 08/25/25 Gestational Age (weeks): 40 Gestational Age (days): 5 Gestational age based on last menstrual period: 40 Indication for induction: post dates History of present illness: 20-year-old 1 para 0 admitted to labor and delivery with complaints of leaking since 1800 August 29, 2025. Patient started contractions around 7:30 in the morning. Her last. November 18, 2024. Estimated due date August 25, 2025. Patient has a history of abnormal cystic fibrosis screen. The father's saliva screen was negative. The patient and partner both saw MFM and genetics. Patient denies social habits. Denies surgery. Denies chronic illness. Reports movement. And feels mild contractions no bleeding. History of Present Dating criteria: LMP confirmed by 2nd trimester US Adequate Care: Yes Ultrasounds: normal mid trimester US Obstetrical complications: none Medical complications: none Labs Labs: Positive: Rubella Titre, Negative: RPR, Hepatitis B, HIV, Chlamydia, Gonorrhea and Group Beta Strep and Unknown: Herpes Type 1, Herpes Type 2 and Covid-19 Review of Systems Review of Systems Systems Reviewed: All systems reviewed, normal except as documented Past Medical History Surgical History SURGICAL: Negative Section Meds Home Medications and Allergies Home Medications ?Medication ?Instructions ?Recorded ?Confirmed ?Type vitamins no.102-iron 90 1 cap PO QDAY 08/28/25 08/30/25 History mg-folate 1 mg-dha 200 mg capsule Allergies Allergy/AdvReac Type Severity Reaction Status Date / Time No Known Allergies Allergy Verified 08/30/25 09:32 OB Exam Physical Exam Vital signs: Temp Pulse Resp BP 98.9 F 60 16 117/74 08/30/25 17:53 08/30/25 18:36 08/30/25 17:53 08/30/25 18:36 Narrative: Alert and oriented. Normal heart rate and rhythm. Lungs clear no wheezes. Gravid abdomen. Gynecoid pelvis EFW 3200 g. Vaginal exam admission was 70%, 2-3, vertex. Leaking clear fluid. AmniSure was positive. Irregular contractions. And on admission heart rate was category 1 with accelerations and moderate regular Detailed Labor and Delivery Exam Dilation (cm): 2-3 Effacement (%): 70 Cervix position: mid station: -1 Consistency: soft Presentation: Vertex Cervical ripeness score: 5 Membranes: ruptured Amniotic fluid: clear Baseline heart rate: 145 monitor accelerations: 15x15 monitor decelerations: None skilled nursing variability: Moderate (11-25) Contraction frequency (min): irreg Contraction duration (sec): 40 Tachysystole: No Contraction intensity: Mild OB Results Labs 08/30/25 10:00 Labs: Short CBC 08/30/25 Range/Units 10:00 WBC 8.6 (3.6-11.0) Thou/mm3 Hgb 12.7 (12.0-16.0) g/dL Hct 37.3 (36.0-46.0) % Plt Count 232 (140-440) Thou/mm3 OB Assessment & Plan Assessment and Plan (1) Encounter for supervision of high risk in third trimester, antepartum: Status: Acute Additional Plan Induction method: per pitocin protocol Plan: augmentation, anticipate NVD, GBS prophylaxis tx and consult MD ashford
[2025-08-30] MEDS: fentaNYL CIT INJ 50 mCg/ML AMP 2ML 100 MCG IVP ×2 (20:58→23:04)
[2025-08-31] VITALS (33 sets, daily range): BP systolic 96–149; BP diastolic 54–88; PULSE 73–115; RESP 12–25; TEMP 37.1–37.7; O2SAT 93–98
[2025-08-31] MEDS: Ampicillin Inj 1,000 MG in SODIUM CHLORIDE 0.9% (Popper) 50 ML 100 MG IV ×2 (02:03→06:28)
[2025-08-31] MEDS: fentaNYL CIT INJ 50 mCg/ML AMP 2ML 100 MCG IVP (02:54)
--- NOTE | 2025-08-31 05:50 | PD.LDPN ---
Documentation for date of: 08/31/25 OB Labor Progress Note Pain Control Pain control: tolerating well Pelvic Exam Dilation (cm): 10 Effacement (%): 90 station: 0 Amniotic membrane status: Ruptured Contractions Monitor mode: Internal Contraction frequency: 1.5-4.5 Contraction duration: 30 Contraction pattern: Coupling Contraction phase: Resting Contraction intensity: Moderate Status status: Category ll (variables) Assessment and Plan Pitocin rate (mU/min): 4 Plan OB labor note: continuous present management CNM Management MD Consulted (describe details below): Yes History of Present Illness HPI 20-year-old 1 para 0 admitted to labor and delivery with complaints of leaking since 1800 August 29, 2025. Patient started contractions around 7:30 in the morning. Her last. November 18, 2024. Estimated due date August 25, 2025. Patient has a history of abnormal cystic fibrosis screen. The father's saliva screen was negative. The patient and partner both saw MFM and genetics. Patient denies social habits. Denies surgery. Denies chronic illness. Reports movement. And feels mild contractions no bleeding.
--- NOTE | 2025-08-31 06:11 | PD.LDPN ---
Documentation for date of: 08/31/25 OB Labor Progress Note Pain Control Pain control: tolerating well Comments: pushing well Pelvic Exam Dilation (cm): 10 Effacement (%): 90 station: +1 Amniotic membrane status: Ruptured Comments: variable decels, periods of minimal variability, no accelerations Contractions Monitor mode: Internal Contraction frequency: 1.5-4.5 Contraction pattern: Coupling Contraction phase: Resting Contraction intensity: Moderate Status status: Category ll (variables) Assessment and Plan Pitocin rate (mU/min): 4 Assessment: active labor CNM Management MD Consulted (describe details below): Yes Details of MD consultation: consult with OB environmental conservation officer. discuss monitor strip, OK to continue pushing at this time History of Present Illness HPI 20-year-old 1 para 0 admitted to labor and delivery with complaints of leaking since 1800 August 29, 2025. Patient started contractions around 7:30 in the morning. Her last. November 18, 2024. Estimated due date August 25, 2025. Patient has a history of abnormal cystic fibrosis screen. The father's saliva screen was negative. The patient and partner both saw M and genetics. Patient denies social habits. Denies surgery. Denies chronic illness. Reports movement. And feels mild contractions no bleeding.
[2025-08-31] MEDS: LIDOCAINE HCL 1% 20 ML VIAL INFL (07:11)
--- NOTE | 2025-08-31 07:29 | PD.LDPN ---
Documentation for date of: 08/31/25 OB Labor Progress Note Pain Control Comments: no epidural Pelvic Exam Dilation (cm): 10 Effacement (%): 100 station: +1 Amniotic membrane status: Ruptured Contractions Monitor mode: Internal Contraction frequency: 1.5-4 Contraction pattern: Coupling Contraction phase: Resting Contraction intensity: Strong Status status: Category ll Comments: good BBV but vraiable decelerations and with good recovery Assessment and Plan Assessment: active labor Comments: After an informed consent Kiwi was applied once and tried a gentle pull but removed as station is not appropriate yet as long as BBV is good then can wait / if patient does not bring the baby down more or decelerations worsen then she may end up with a c section patient is signed out to Dr David NUÑEZ Management MD Consulted (describe details below): Yes Details of MD consultation: see above History of Present Illness HPI 20-year-old 1 para 0 admitted to labor and delivery with complaints of leaking since 1800 August 29, 2025. Patient started contractions around 7:30 in the morning. Her last. November 18, 2024. Estimated due date August 25, 2025. Patient has a history of abnormal cystic fibrosis screen. The father's saliva screen was negative. The patient and partner both saw MFM and genetics. Patient denies social habits. Denies surgery. Denies chronic illness. Reports movement. And feels mild contractions no bleeding. I was called by the JOAQUIN and to review the strip I examined the patient at 0655 and she is at +1 to +2 and is Op and is pushing but UC are not adequate
--- NOTE | 2025-08-31 07:30 | PC.NURSE ---
08/30/25-08/31/25 Rn precepting Cristi Barnett RN, review and agree with labor progress assessment charting.
--- NOTE | 2025-08-31 07:45 | PD.LDPN ---
Documentation for date of: 08/31/25 OB Labor Progress Note Pain Control Comments: moans with uc Pelvic Exam Dilation (cm): 10 Effacement (%): 100 station: +1 Amniotic membrane status: Ruptured Contractions Monitor mode: Internal Contraction frequency: 1.5-4 Contraction duration: 35 Contraction pattern: Coupling Contraction phase: Resting Contraction intensity: Strong Status status: Category ll Assessment and Plan Assessment: other (off) Comments: OB at bedside. no decent, FHR 160. discuss need for C/S. patient wants to wait, called for armored car driver CNM Management MD Consulted (describe details below): Yes Details of MD consultation: decision for primary c/s History of Present Illness HPI 20-year-old 1 para 0 admitted to labor and delivery with complaints of leaking since 1800 August 29, 2025. Patient started contractions around 7:30 in the morning. Her last. November 18, 2024. Estimated due date August 25, 2025. Patient has a history of abnormal cystic fibrosis screen. The father's saliva screen was negative. The patient and partner both saw MFM and genetics. Patient denies social habits. Denies surgery. Denies chronic illness. Reports movement. And feels mild contractions no bleeding. I was called by the CNM and to review the strip I examined the patient at 0655 and she is at +1 to +2 and is Op and is pushing but UC are not adequate
[2025-08-31] MEDS: ceFAZolin/D5W 2 GM IV 2 GM/100 ML BAG IV (08:13)
[2025-08-31] MEDS: METOCLOPRAMIDE INJ 5 MG/ML VIAL 2 ML 10 MG IVP (08:14)
[2025-08-31] MEDS: FAMOTIDINE INJ 10 MG/ML VIAL 2 ML 20 MG IV (08:14)
--- NOTE | 2025-08-31 08:20 | PD.LDANTPROG ---
Subjective Subjective Interval history: Received handoff at change of shift. Patient is a 1 para 0 at 40 weeks and 6 days who is now 48 hours status post spontaneous rupture of membranes Patient has been fully dilated and pushing for the last 2 hours and attempted vacuum was applied by the overnight on-call physician Evaluated patient and station is still -2 with caput at 0 Exam Vital Signs Temp Pulse Resp BP O2 Del Method 99.8 F 73 20 119/68 Room Air 08/31/25 07:01 08/31/25 07:58 08/31/25 07:01 08/31/25 07:58 08/31/25 07:01 Urinary Catheter Management Cath placed during this visit: no Assessment & Plan Problems (1) Encounter for supervision of high risk in third trimester, antepartum: Status: Acute (2) Failure of descent in labor, delivered, current hospitalization: Status: Acute Assessment and plan: 20-year-old at 40 weeks and 6 days with failure to descend Reviewed findings with the patient, recommended to proceed with delivery via Risks benefits and alternatives were reviewed with the patient using the picking belt operator phone Consent forms were signed. Time Spent With Patient Time with patient: less than 15 minutes Objective Labs 08/30/25 10:00 Labs: Laboratory Results - last 24 hr 08/30/25 08/30/25 09:28 10:00 WBC 8.6 RBC 4.11 Hgb 12.7 Hct 37.3 MCV 91 MCH 30.9 MCHC 34.0 RDW Std Deviation 44.1 Plt Count 232 Neut % (Auto) 72 Lymph % (Auto) 18 Traverse % (Auto) 7 Eos % (Auto) 1 Baso % (Auto) 0 Neut # (Auto) 6.2 Lymph # (Auto) 1.6 Traverse # (Auto) 0.6 Eos # (Auto) 0.1 Baso # (Auto) 0.0 Immature Gran # (Auto) 0.09 H Absolute Nucleated RBC 0.00 Immature Gran % 1 H Nucleated RBC % 0 Membrane Rupture Positive A Syphilis Serology Nonreactive Blood Type O Positive Antibody Screen NEGATIVE Blood Bank Wristband ID Yes
--- NOTE | 2025-08-31 09:02 | ESOP_ITS ---
Operative Note - TRAFFIC CONTROL SIGNALER Procedure Date of procedure: 08/31/25 Procedure Performed: Primary low-transverse section Indication: 20-year-old at 40 weeks and 6 days Prolonged rupture of membranes Failure to descend, status post failed vacuum application Suspected macrosomic fetus Anesthesia type: Spinal Procedure description: Informed consent was obtained and the patient was taken to the operating room. Identity was confirmed by double identifiers and she was placed on the operating table. Spinal anesthesia was administered and she was positioned in the supine position. The abdomen and perineum were prepped in the usual sterile fashion and a Sandoval catheter was placed to continuous drainage. Sterile drapes were applied. The incision site was tested for adequacy of anesthesia. A Pfannenstiel skin incision was made with a scalpel and carried to the subcutaneous fat up to the rectus fascia. The rectus fascia was incised on either side of the midline and the incisions were extended bilaterally. The fascia was gently dissected off the ventral surface of the rectus muscle both superiorly and inferiorly. The rectus bellies were gently in the midline and the peritoneum was identified and entered bluntly using the surgeon's finger. The peritoneal opening was now stretched to create an adequate opening for access to the uterus. Kobe O-ring retractor was placed for adequate visualization. The anterior surface of the uterus was palpated. The bladder reflection was identified and a Sweetie Mak low transverse uterine incision was made in the lower uterine segment taking care to avoid the bladder. Uterine entry was accomplished bluntly and the opening was stretched to create adequate room. The amniotic membranes were now ruptured and clear amniotic fluid was released. The fetus was noted to be in the vertex position. The head was gently elevated out of the maternal pelvis and the rest of the shoulders and body were delivered by gentle fundal pressure. Umbilical cord was doubly clamped, divided and the was handed over to the waiting team. Cord gas samples were obtained. The placenta was delivered by gentle traction on the umbilical cord. The interior of the uterus was now thoroughly cleaned of all blood and debris and membranes. The hysterotomy angles were grasped by a pair of Allis clamps and the hysterotomy was closed using 1 Monocryl suture in 2 layers. The first layer was used to approximate the muscle in a running locked fashion, the second layer was used to approximate the thickness of the myometrium and uterine serosa in an imbricated manner. Once the repair was completed the hysterotomy was inspected and noted to be adequately hemostatic. The hysterotomy was once again inspected and hemostasis was noted to be satisfactory. The Kobe retractor was now removed. The peritoneal edges were re approximated. The rectus muscles were re approximated. The rectus fascia was now repaired using 1 strata fix suture in a running fashion. The subcutaneous layer was now copiously irrigated using warm normal saline. All bleeding points were cauterized using the Bovie. The subcutaneous fat was closed using 3-0 Vicryl. The skin was closed using 4-0 Monocryl in a subcuticular fashion. The skin was cleaned and a sterile dressing was applied. The patient was now undraped, the abdomen and back were thoroughly cleaned and she was transferred to the recovery room in a stable and awake condition. The patient tolerated the entire procedure well. No complications were encountered. All instrument, sponge and lap counts were correct x2. Specimen: none Estimated blood loss (ml): 600 Surgical staff Operation Date: 08/31/25 08:15 <No data on this case meets the specified criteria> Diagnosis Discharge Diagnosis (1) Failure of descent in labor, delivered, current hospitalization: Status: Acute (2) delivery delivered: Status: Acute (3) care following delivery: Status: Acute Problem List Completed Was Problem List Reviewed/Reconciled?: Yes
--- NOTE | 2025-08-31 09:04 | PD.LDDELS ---
Data (Rodriguez) Data Hx Section: No : 1 Term: 0 : 0 Livin Abortions: Spontaneous & Theraputic: 0 Delivery Data (Rodriguez) Labor Data Initiation of labor: Augmentation Induction/Augmentation Agent: Pitocin ROM date: 08/29/25 ROM time: 18:00 Amniotic membrane rupture type: Spontaneous Amniotic fluid description: Clear Delivery Data Onset of labor date: 08/30/25 Onset of labor time: 21:00 Complete dilation date: 08/31/25 Complete dilation time: 04:51 delivery date: 08/31/25 delivery time: 08:40 Placenta delivery date: 08/31/25 Placenta delivery time: 08:41 Stage 1 total time: Labor - Stage 1 Duration 7 hours and 51 minutes Delivered by: Dr. Hernandez Delivery nurse: Osmar Chavarria nurse: Ashely Roll Off Driver at delivery: Yes (Jenna) Support person(s) at delivery: FOB at bedside Other staff at delivery: Yazan, CARLOS [id number], REAL ESTATE CLOSING COORDINATOR Ludivina, OB OR tech Delivery Method Delivery method: Low Transverse Presentation: Vertex Anesthesia Type Anesthesia Type: Spinal Anesthesia type: Spinal Placenta Placenta delivery description: Manual Removal Cord blood sent to lab: Yes cord blood collection: Cord Blood Type Episiotomy Episiotomy description: None Umbilical Cord cord description: 3 Vessels Data (Rodriguez) Data order: 1 Clifton's gender: Female Identification band number: [id number] weight (gms): 3860 g Weight (pounds): 8 lbs and 8.2 ozs Clifton length: 51 cm 1 minute: 8 5 minutes: 9
[2025-08-31] MEDS: METHYLERGONOVINE INJ 0.2 MG/ML VIAL IM (11:19)
[2025-08-31] MEDS: TRANEXAMIC ACID 1,000 MG IVPB 1,000 MG/100 ML BAG 200 MG IV (11:25)
[2025-08-31] MEDS: OXYTOCIN in NS 20 units 20 UNIT/1,000 ML BAG 125 UNIT IV (17:51)
[2025-08-31] MEDS: HYDROcodone/APAP 5/325 TABLET 2 TAB PO (20:15)
--- NOTE | 2025-08-31 20:45 | PC.NURSE ---
Notifu MD Hernandez of pt's urine output. ordered to stop pitocin and give 1 L Normal Saline bolus then start LR 125ml/hr.
[2025-08-31] MEDS: SODIUM CHLORIDE 0.9% 1000 ML 1,000 ML 999 ML IV (20:57)
[2025-08-31] MEDS: RINGERS LACTATED 1000 ML 1,000 ML 125 ML IV (22:16)
--- NOTE | 2025-08-31 23:56 | PC.NURSE ---
MD Hernandez made aware of pt's urine output after giving pt a 1L bolus. As per MD Hernandez, okat to take out franklin and to discontinue IV fluids.
[2025-09-01] MEDS: KETOROLAC INJ 30 MG/ML VIAL IVP ×2 (00:32→12:46)
[2025-09-01 04:00] VITALS: BP 105/67; PULSE 101; RESP 18; TEMP 36.5; O2SAT 98
[2025-09-01] MEDS: HYDROcodone/APAP 5/325 TABLET 2 TAB PO (06:09)
[2025-09-01 06:51] LABS: Basophils # (Auto) 0.1 Thou/mm3 (0.0-0.2); Basophils % (Auto) 0 % (0-2.5); Eosinophils # (Auto) 0.1 Thou/mm3 (0.0-0.5); Eosinophils % (Auto) 0 % (0-10); Hematocrit 27.1 % (36.0-46.0); Hemoglobin 9.1 g/dL (12.0-16.0); Immature Granulocytes Auto 0.13 Thou/mm3 (0.00-0.00); Lymphocytes # (Auto) 3.1 Thou/mm3 (1.0-4.8); Lymphocytes % (Auto) 18 % (10-50); Mean Corpuscular HGB Conc 33.6 g/dl (31.0-37.0); Mean Corpuscular Hemoglobin 31.3 pg (25.0-35.0); Mean Corpuscular Volume 93 fL (80-100); Monocytes # (Auto) 0.9 Thou/mm3 (0.0-0.8); Monocytes % (Auto) 6 % (0-12); Neutrophils # (Auto) 12.7 Thou/mm3 (1.8-7.7); Neutrophils % (Auto) 75 % (37-80); Nucleated Red Blood Cell # 0.00 Thou/mm3 (0.00-0.00); Nucleated Red Blood Cell % 0 /100 WBC (0); Platelet Count 220 Thou/mm3 (140-440); RDW Standard Deviation 46.5 fL (36.4-46.3); Red Blood Count 2.91 Miln/mm3 (4.00-5.20); White Blood Count 16.9 Thou/mm3 (3.6-11.0)
[2025-09-01 07:58] VITALS: BP 95/57; PULSE 111; RESP 18; TEMP 37.6; O2SAT 95
[2025-09-01] MEDS: DOCUSATE SOD 100 MG CAPSULE PO (08:10)
[2025-09-01 12:10] VITALS: BP 110/70; PULSE 102; RESP 18; TEMP 36.8; O2SAT 97
--- NOTE | 2025-09-01 16:18 | PD.LDPPPRG ---
Subjective Subjective Interval history: The patient is a 20-year-old G1 now P1 001 status post 9n 08/31. Patient was a failed vacuum delivery. She pushed about [address] Meraz performed her section at around 840 8 in the morning yesterday.. This afternoon, patient is ambulating to the restroom. She states she feels dizzy. She denies nausea or vomiting ,she is tolerating a general diet and she is emptying her bladder. She denies heavy vaginal bleeding. Her predelivery hemoglobin is 12.7 her hemoglobin this morning is 9.1. The plan will be to hook the patient up with fluids, give her a fluid bolus. Give her milk of magnesia or a suppository to improve flatus. And to recheck a stat CBC now. The patient is Divehi-speaking only and her entire physical exam and assessment was plan it is performed through an official translating service on the telephone. Exam Vital Signs Temp Pulse Resp BP Pulse Ox O2 Del Method O2 Flow Rate 99.6 F 111 H 18 95/57 L 95 Room Air 3 09/01/25 07:58 09/01/25 07:58 09/01/25 07:58 09/01/25 07:58 09/01/25 07:58 09/01/25 07:58 08/31/25 10:30 Narrative Exam Abdomen distended, soft binder in place. Objective Labs 09/01/25 06:10 Labs: Laboratory Results - last 24 hr 09/01/25 06:10 WBC 16.9 H D RBC 2.91 L Hgb 9.1 L D Hct 27.1 L D MCV 93 MCH 31.3 MCHC 33.6 RDW Std Deviation 46.5 H Plt Count 220 Neut % (Auto) 75 Lymph % (Auto) 18 Bledsoe % (Auto) 6 Eos % (Auto) 0 Baso % (Auto) 0 Neut # (Auto) 12.7 H Lymph # (Auto) 3.1 Bledsoe # (Auto) 0.9 H Eos # (Auto) 0.1 Baso # (Auto) 0.1 Immature Gran # (Auto) 0.13 H Absolute Nucleated RBC 0.00 Immature Gran % 1 H Nucleated RBC % 0 Assessment & Plan Problem List (1) delivery delivered: Problem details: Patient with dizziness. Check stat CBC. IV fluid bolus of 1 L. 2 units of blood on hold. Status: Acute Time Spent With Patient Time: Total time spent is greater than 50% in coordination of care (as documented) at patient's floor/unit and/or counseling patient: Time with patient: less than 15 minutes
[2025-09-01 17:00] LABS: Basophils # (Auto) 0.0 Thou/mm3 (0.0-0.2); Basophils % (Auto) 0 % (0-2.5); Eosinophils # (Auto) 0.0 Thou/mm3 (0.0-0.5); Eosinophils % (Auto) 0 % (0-10); Hematocrit 25.0 % (36.0-46.0); Immature Granulocytes Auto 0.15 Thou/mm3 (0.00-0.00); Lymphocytes # (Auto) 2.2 Thou/mm3 (1.0-4.8); Lymphocytes % (Auto) 15 % (10-50); Mean Corpuscular HGB Conc 34.8 g/dl (31.0-37.0); Mean Corpuscular Hemoglobin 31.9 pg (25.0-35.0); Mean Corpuscular Volume 92 fL (80-100); Monocytes # (Auto) 0.6 Thou/mm3 (0.0-0.8); Monocytes % (Auto) 4 % (0-12); Neutrophils # (Auto) 11.8 Thou/mm3 (1.8-7.7); Neutrophils % (Auto) 79 % (37-80); Nucleated Red Blood Cell # 0.02 Thou/mm3 (0.00-0.00); Nucleated Red Blood Cell % 0 /100 WBC (0); Platelet Count 240 Thou/mm3 (140-440); RDW Standard Deviation 46.1 fL (36.4-46.3); Red Blood Count 2.73 Miln/mm3 (4.00-5.20); White Blood Count 14.9 Thou/mm3 (3.6-11.0)
[2025-09-01 17:06] LABS: Hemoglobin 8.7 g/dL (12.0-16.0)
[2025-09-01] MEDS: HYDROcodone/APAP 5/325 TABLET 1 TAB PO (18:04)
[2025-09-01 20:35] VITALS: BP 110/75; PULSE 112; RESP 16; TEMP 36.9; O2SAT 98
[2025-09-02] VITALS (10 sets, daily range): BP systolic 113–149; BP diastolic 74–88; PULSE 76–100; RESP 16–17; TEMP 36.9–37.2; O2SAT 97–99
[2025-09-02 06:09] LABS: Basophils # (Auto) 0.0 Thou/mm3 (0.0-0.2); Basophils % (Auto) 0 % (0-2.5); Eosinophils # (Auto) 0.1 Thou/mm3 (0.0-0.5); Eosinophils % (Auto) 1 % (0-10); Hematocrit 22.8 % (36.0-46.0); Immature Granulocytes Auto 0.37 Thou/mm3 (0.00-0.00); Lymphocytes # (Auto) 1.9 Thou/mm3 (1.0-4.8); Lymphocytes % (Auto) 13 % (10-50); Mean Corpuscular HGB Conc 33.3 g/dl (31.0-37.0); Mean Corpuscular Hemoglobin 31.4 pg (25.0-35.0); Mean Corpuscular Volume 94 fL (80-100); Monocytes # (Auto) 0.7 Thou/mm3 (0.0-0.8); Monocytes % (Auto) 5 % (0-12); Neutrophils # (Auto) 11.3 Thou/mm3 (1.8-7.7); Neutrophils % (Auto) 78 % (37-80); Nucleated Red Blood Cell # 0.02 Thou/mm3 (0.00-0.00); Nucleated Red Blood Cell % 0 /100 WBC (0); Platelet Count 231 Thou/mm3 (140-440); RDW Standard Deviation 46.2 fL (36.4-46.3); Red Blood Count 2.42 Miln/mm3 (4.00-5.20); White Blood Count 14.4 Thou/mm3 (3.6-11.0)
[2025-09-02 06:10] LABS: Hemoglobin 7.6 g/dL (12.0-16.0)
[2025-09-02] MEDS: DOCUSATE SOD 100 MG CAPSULE PO (08:24)
[2025-09-02] MEDS: HYDROcodone/APAP 5/325 TABLET 1 TAB PO ×2 (08:54→15:11)
--- NOTE | 2025-09-02 11:19 | PD.LDPPPRG ---
Subjective Subjective Interval history: Patient has no/ complaints Headache no Blurry vision no Chest pain no Palpitations no Shortness of breath no Nausea or vomiting or constipation no Back pain no Dysuria no Dizziness mild and fatigue calf pain no She is voiding spontaneously after catheter removal yes Passing flatus yes Lochia minimal yes Exam Vital Signs Temp Pulse Resp BP Pulse Ox O2 Del Method O2 Flow Rate 98.5 F 100 16 117/78 98 Room Air 3 09/02/25 07:30 09/02/25 07:30 09/02/25 07:30 09/02/25 07:30 09/01/25 20:35 09/01/25 20:35 08/31/25 10:30 Narrative Exam alert x3 still has pallor chest clear CVS RRR NO thromegaly Uterus is nontender Uterus is firm Just below the umbilicus Bowel sounds present Abdomen soft no hernias noted/no CVAT Incision CDI No drainage Appropriately tender No calf tenderness Edema Objective Labs 09/02/25 05:35 Labs: Laboratory Results - last 24 hr 09/01/25 09/02/25 09/02/25 16:47 05:35 09:30 WBC 14.9 H 14.4 H RBC 2.73 L 2.42 L Hgb 8.7 L 7.6 L Hct 25.0 L 22.8 L MCV 92 94 MCH 31.9 31.4 MCHC 34.8 33.3 RDW Std Deviation 46.1 46.2 Plt Count 240 231 Neut % (Auto) 79 78 Lymph % (Auto) 15 13 Hudspeth % (Auto) 4 5 Eos % (Auto) 0 1 Baso % (Auto) 0 0 Neut # (Auto) 11.8 H 11.3 H Lymph # (Auto) 2.2 1.9 Hudspeth # (Auto) 0.6 0.7 Eos # (Auto) 0.0 0.1 Baso # (Auto) 0.0 0.0 Immature Gran # (Auto) 0.15 H 0.37 H Absolute Nucleated RBC 0.02 H 0.02 H Immature Gran % 1 H 3 H Nucleated RBC % 0 0 Blood Type O Positive Antibody Screen NEGATIVE Crossmatch See Detail Blood Bank Wristband ID Yes Assessment & Plan Problem List (1) delivery delivered: Problem details: Patient with dizziness. Check stat CBC. IV fluid bolus of 1 L. 2 units of blood on hold. plan to transfuse and monitor CBC Status: Acute (2) Anemia: Status: Acute Plan Comment Plan Comment: patient will be getting 2 units of PRBC , blood transfusion and Hb and Vital signs will be monitored Time Spent With Patient Time: Total time spent is greater than 50% in coordination of care (as documented) at patient's floor/unit and/or counseling patient: Time with patient: 25 - 35 minutes
[2025-09-02 23:03] LABS: Basophils # (Auto) 0.1 Thou/mm3 (0.0-0.2); Basophils % (Auto) 0 % (0-2.5); Eosinophils # (Auto) 0.1 Thou/mm3 (0.0-0.5); Eosinophils % (Auto) 1 % (0-10); Hematocrit 33.0 % (36.0-46.0); Hemoglobin 11.2 g/dL (12.0-16.0); Immature Granulocytes Auto 0.35 Thou/mm3 (0.00-0.00); Lymphocytes # (Auto) 2.8 Thou/mm3 (1.0-4.8); Lymphocytes % (Auto) 17 % (10-50); Mean Corpuscular HGB Conc 33.9 g/dl (31.0-37.0); Mean Corpuscular Hemoglobin 30.2 pg (25.0-35.0); Mean Corpuscular Volume 89 fL (80-100); Monocytes # (Auto) 0.8 Thou/mm3 (0.0-0.8); Monocytes % (Auto) 5 % (0-12); Neutrophils # (Auto) 12.4 Thou/mm3 (1.8-7.7); Neutrophils % (Auto) 75 % (37-80); Nucleated Red Blood Cell # 0.05 Thou/mm3 (0.00-0.00); Nucleated Red Blood Cell % 0 /100 WBC (0); Platelet Count 273 Thou/mm3 (140-440); RDW Standard Deviation 52.5 fL (36.4-46.3); Red Blood Count 3.71 Miln/mm3 (4.00-5.20); White Blood Count 16.5 Thou/mm3 (3.6-11.0)
[2025-09-03 03:38] VITALS: BP 135/86; PULSE 86; RESP 17; TEMP 37.9; O2SAT 96
[2025-09-03 03:47] VITALS: TEMP 37.9
[2025-09-03] MEDS: ACETAMINOPHEN 325 MG TABLET 650 MG PO ×2 (03:47→09:40)
[2025-09-03 06:03] VITALS: TEMP 36.6
[2025-09-03 06:13] VITALS: TEMP 36.6
[2025-09-03 08:00] VITALS: BP 144/91; PULSE 69; RESP 18; TEMP 37.1; O2SAT 96
[2025-09-03] MEDS: DOCUSATE SOD 100 MG CAPSULE PO (09:40)
--- NOTE | 2025-09-03 10:32 | PD.LDDS ---
DS: Providers Provider Date of admission: 08/30/25 10:12 Primary care physician: Physician No Primary/Family Admitting Provider: Faith Nice CNM Attending Provider on Admission: Audi Hernandez MD Consults: 08/31/25 09:05 Referral Routine Comment: Attending Provider on DC: Garima Myers MD Discharging Provider: Garima Myers MD DS: Diagnosis Discharge Diagnosis (1) Anemia: Status: Acute (2) care following delivery: Status: Acute (3) delivery delivered: Status: Acute (4) Failure of descent in labor, delivered, current hospitalization: Status: Acute Problem List Completed Was Problem List Reviewed/Reconciled?: Yes Summary/Hosp Course Brief History: Received handoff at change of shift. Patient is a 1 para 0 at 40 weeks and 6 days who is now 48 hours status post spontaneous rupture of membranes Patient has been fully dilated and pushing for the last 2 hours and attempted vacuum was applied by the overnight on-call physician Evaluated patient and station is still -2 with caput at 0/ she had a c section and then drop in hemoglobin/ received 2 units PRBC Now Hb is stable Peripartum Data Delivery Method: Low Transverse Episiotomy Description: None Procedures: Procedures Operation Date: 08/31/25 08:15 Actual Procedure Side Surgeon p in OB Audi Hernandez MD complications: other (Blood transfusion for post op anemia ) Status at Discharge Cognitive/behavioral status at discharge: Patient has no/ complaints Headache no Blurry vision no Chest pain no Palpitations no Shortness of breath no Nausea or vomiting or constipation no Back pain no Dysuria no Dizziness no calf pain no She is voiding spontaneously after catheter removal yes Passing flatus yes Lochia minimal yes / returning to baseline PPE alert x3 chest clear CVS RRR NO thromegaly Uterus is nontender Uterus is firm Just below the umbilicus Bowel sounds present Abdomen soft no hernias noted/no CVAT Incision CDI No drainage Appropriately tender No calf tenderness Edema minimal Time Spent with Patient Time attestation: Total time spent providing and/or coordinating discharge services: Exam Vital Signs Temp Pulse Resp BP Pulse Ox O2 Del Method O2 Flow Rate 98.8 F 69 18 144/91 H 96 Room Air 3 09/03/25 08:00 09/03/25 08:00 09/03/25 08:00 09/03/25 08:00 09/03/25 08:00 09/03/25 08:00 09/02/25 15:30 Discharge Plan Plan Patient Disposition: HOME (Self Care) Patient condition on transfer: Stable Prescriptions/Referrals Prescriptions/Med Rec: New hydrocodone-acetaminophen 5-325 mg tablet 1 tab PO Q6H MDD 4 PRN (Reason: pain) 5 Days Qty: 20 0RF docusate sodium [Stool Softener] 100 mg capsule 100 mg PO QDAY 30 Days Qty: 30 0RF ibuprofen 600 mg tablet 600 mg PO Q6H MDD 4 PRN (Reason: fever or pain) 10 Days Qty: 40 0RF ferrous sulfate 325 mg (65 mg iron) tablet 325 mg PO QDAY Qty: 30 0RF Continued PNV 863-dwtf-yxwtil-dha 90 mg iron- 1 mg-200 mg capsule 1 cap PO QDAY Referrals: No Primary/Family,Physician [Primary Care Provider] Patient/Caregiver Discharge Instructions Discharge Activity: activity as tolerated Other Discharge Activity Instructions:: pelvic rest x 6 weeks follow up in 1 week with her OBGYn Education Materials: Anemia, Breast Care After , Understanding Depression, : Caring for Yourself, C Section Dc Print Language: Marshallese Stand Alone Forms: Olinda Award Info., Patient Portal Info Letter, DC from Surgery Discharge Order Discharge Orders: Discharge (Routine); Ordered 09/03/25 Ordered By: Garima Myers Planned Discharge Date 09/03/25
[2025-09-03 11:50] VITALS: BP 126/71; RESP 18; TEMP 36.6; O2SAT 97
== END 2025-09-03 12:15 | disposition home or self-care (01) | DRG 540 ==
LOC: S4SX 08-31 07:58 → S4NX 08-31 08:25
PROVIDERS: Obstetrics & Gynecology; Admitting Provider Advanced Practice Midwife; Visit Provider Obstetrics & Gynecology
PROC: 10D00Z1 Extraction of Products of Conception, Low, Open Approach (ICD-10-PCS; CPT 59514; principal; 2025-08-31 08:00)
DX: O48.0 Post-term pregnancy (principal); O42.92 Full-term premature rupture of membranes, unspecified as to length of time between rupture and onset of labor; O32.4XX0 Maternal care for high head at term, not applicable or unspecified; O66.5 Attempted application of vacuum extractor and forceps; O99.02 Anemia complicating childbirth
CPT/HCPCS: 36415; 59025; 76805; 84112; 85025; 86780; 86850; 86900; 86901; 86923; A4217; A4314; A4649; J0290; J0689; J1885; J2210; J2274; J2590; J2765; J3010; J3490; J7030; J7050; J7120; P9016; A9270; J2270

== ENCOUNTER 2025-09-22 15:15 | Outpatient (AMB) | payer MEDICAID, SELFPAY ==
--- NOTE | 2025-09-22 15:21 | AMBOBPPN_ITS ---
Vital Signs 09/22/25 15:22 Height 1.5 m Height Method Stated Weight 51.823 kg Weight Measurement Method Standing Scale BMI 23.0 BP 102/70 Blood Pressure Source Automatic Cuff Blood Pressure Location Right Upper Arm Position Sitting Respiration 18 Pulse 77 Pulse Source Monitor Temp 97.6 F Temp Source Temporal Artery Scan Pulse Oximetry (%) 98 Oxygen Delivery Method Room Air Allergies/Home Meds Allergies & Medications Allergies No Known Allergies Allergy (Verified 09/22/25 15:22) Medication Reconciliation vitamins no.102-iron 90 mg-folate 1 mg-dha 200 mg capsule 1 cap PO QDAY 08/28/25 [History Confirmed 09/22/25] docusate sodium 100 mg capsule (Stool Softener) 100 mg PO QDAY 30 days #30 caps 09/01/25 [Rx Confirmed 09/22/25] ferrous sulfate 325 mg (65 mg iron) tablet 325 mg PO QDAY #30 tabs 09/03/25 [Rx Confirmed 09/22/25] Intake Visit Data Collection New Patient or Established: Established Patient (seen at [facility] within 3 years) Reason for Visit:: PP CSECTION Seen by Clinical Staff ONLY (RN/MA): No Home Security Professional Required: Yes Home Security Professional's name/title: TERRY MCGEE MA Do You Feel Safe at Home: Yes Authorities Contacted: N/A PCP or OBGYN visit in last 3 months: Yes Date of Last PCP or OBGYN visit: 08/30/25 Hx Now: No Are you currently on any form of Control: No Pain Present Currently: No Pain Scale Used: Farfan-Guerrero/Numerical Pain scale:: 0 Smoking Status Smoking Status: Never smoker Immunizations Flu Vaccine in the Last 12 Months: No Flu Vaccine Exclusion Criteria: No Exclusion Criteria COMPLIANCE ADMINISTRATOR: Past Medical History Past Medical History: No Hx Neurological Disorders, No Hx Breast Cancer, No Hx Cardiac Disorders, No Hx Cancer, No Hx Blood Disorders, No Hx Anemia, No Hx Gastrointestinal Disorders, No Hx Renal Disease, No Hx Diabetes Mellitus Type 1 and No Hx Diabetes Mellitus Type 2 Questionnaires Covid-19 Vaccine Questionnaire Has patient been vacinated for Covid-19 Have you been vacinated for Covid-19: No Social History Living Situation History Marital Status: Lives With: Family Housing: House Tobacco History Smoking Status: Never smoker Second Hand Smoke Exposure: No Alcohol History Alcohol Intake: Never Domestic Abuse History Do You Feel Safe at Home: Yes EPDS - PP Depression Screening [place] Pospartum Depression Screen I have been able to laugh and see the funny side of things: (0) As much as I always could I have looked forward with enjoyment to things: (0) As much as I ever did I have blamed myself unnecessarily when things went wrong: (0) No, never I have been anxious or worried for no good reason: (0) No, not at all I have felt scared or panicky for no very good reason: (0) No, not at all Things have been getting on top of me: (0) No, I have been coping as well as ever I have been so unhappy that I have had difficulty sleeping: (0) No, not at all I have felt sad or miserable: (0) No, not at all I have been so unhappy that I have been crying: (0) No, never The thought of harming myself has occurred to me: (0) Never EPDS completed yes HPI Interval History: Radha Glass presents for a visit approximately 3 weeks status post section performed on August 31, 2025. The patient is currently her baby. She reports no apparent complications or concerns related to her surgical recovery at this time. She has a history of section on August 31, 2025. The patient is currently 3 weeks and . Exam Narrative Physical exam: - Abdominal: incision site examined with tape removed. Skin has joined well with good healing noted. Office Procedures [facility] LOC & Office Proc's Nursing/Assessment Patient Status: Established Patient OB Clinic Nursing Assessment: Medication Reconciliation, Update PMH in EMR and Vital Signs OB Clinic Coordination of Care: Complex Care and Chronic Disease 1-5, Education Complex Pt/Fam, Consent,records obtained, informed consent, Lab and Imaging orders, Results/Orders obtained and Staff clarify orders Established Patient Charge Established Patient Point Assignment: 110 Established Patient Point Charge: EP Level 3 (80-115) Antepartum Initial or Follow-up Antepartum Initial Visit: Yes Assessment & Plan Diagnosis / Problem List (1) care following delivery: Status: Acute Plan status post section: - Patient is 3 weeks following section on 08/31/2025. - Incision site examination reveals good healing with skin edges well- approximated. - No signs of infection noted at the surgical site. Plan: - No bandaging required for incision site. - Clean incision area during showering. - Continue current medication for additional 15 days. - Maintain lifting restriction of no more than 25 pounds until one month post- surgery. - Restrict sexual activity until one month post-surgery. - Increase protein intake due to requirements, including cooked meat. - Schedule follow-up appointment with Dr. Cuevas in one month for discussion of control options.
[2025-09-22 15:22] VITALS: BP 102/70; PULSE 77; RESP 18; TEMP 36.4; O2SAT 98; BMI 23.0
== END 2025-09-22 15:30 | disposition home or self-care (01) ==
LOC: HODSOBC 15:15
PROVIDERS: Supervising Provider Obstetrics & Gynecology; Visit Provider Obstetrics & Gynecology
DX: Z39.2 Encounter for routine postpartum follow-up (principal); Z39.1 Encounter for care and examination of lactating mother
CPT/HCPCS: 59425; 99213; G0463